=== PATIENT | male | born 1995 | race African-American/Black ===

== ENCOUNTER 2024-10-11 12:12 | Inpatient (IN) | payer OTHER, SELFPAY ==
[~2024-10-11] VITALS: Ht 188 cm; Wt 91.1 kg
[2024-10-11 13:12] LABS: BASO # 0.1 10^3/uL (0.0-0.2); BASO % 1.2 % (0.0-1.0); EOS # 0.3 10^3/uL (0.0-0.5); EOS % 5.8 % (0.0-3.0); HEMATOCRIT 43.4 % (42.0-52.0); HEMOGLOBIN 14.3 g/dl (13.5-17.5); LYMPH # 2.5 10^3/uL (1.5-5.0); LYMPH % 48.3 % (24.0-44.0); MEAN CORPUSCULAR HEMOGLOBIN 29.2 pg (27.0-33.0); MEAN CORPUSCULAR HGB CONC 32.9 g/dl (32.0-36.5); MEAN CORPUSCULAR VOLUME 88.8 fl (80.0-96.0); MONO # 0.5 10^3/uL (0.0-0.8); MONO % 10.2 % (2.0-8.0); NEUTROPHILS # 1.8 10^3/uL (1.5-8.5); NEUTROPHILS % 34.3 % (36.0-66.0); PLATELET COUNT, AUTOMATED 182 10^3/uL (150-450); RED BLOOD COUNT 4.89 10^6/uL (4.30-6.10); WHITE BLOOD COUNT 5.2 10^3/uL (4.0-10.0)
[2024-10-11 13:21] LABS: ERYTHROCYTE SEDIMENTATION RATE 22 mm/hr (0-15)
[2024-10-11 13:28] LABS: C REACTIVE PROTEIN QUANTITATIV 0.75 MG/DL (<1.0)
[2024-10-11 13:29] LABS: BLOOD UREA NITROGEN 16 MG/DL (9-23); CALCIUM LEVEL 9.3 MG/DL (8.5-10.1); CARBON DIOXIDE LEVEL 29 MMOL/L (20-31); CHLORIDE LEVEL 104 MMOL/L (98-107); CREATININE FOR GFR 1.14 MG/DL (0.70-1.30); GLOMERULAR FILTRATION RATE > 60.0 (>60); GLUCOSE, FASTING 90 MG/DL (60-100); POTASSIUM SERUM 5.1 MMOL/L (3.5-5.1); SODIUM LEVEL 141 MMOL/L (136-145)
[2024-10-11] MEDS: LIDOCAINE 1% MDV 20ML VIAL SC ONE (13:55)
[2024-10-11 14:55] LABS: CK-MB VALUE MASS 1.6 NG/ML (<3.6)
[2024-10-11 14:57] LABS: CPK CREATINE PHOSPHOKINASE 332 U/L (46-171); MB/CK RELATIVE INDEX 0.48 (< OR =4)
[2024-10-11] MEDS: AMPICILLIN SOD/SULBACTAM SOD 3 GM in DEXTROSE 5% (D5W) MINI-BAG PLU 100 ML IV ONE (15:36)
[2024-10-11] MEDS ORDERED: HOME MED LIST COMPLETE! XX SCH (15:50)
[2024-10-11] MEDS ORDERED: MOM 30ML SUSPENSION UDC PO PRN (16:35)
[2024-10-11 17:32] LABS: ALBUMIN 3.6 G/DL (3.2-5.2); ALKALINE PHOSPHATASE 60 U/L (40-129); ALT/SGPT 20 U/L (7.0-40); AST/SGOT 20 U/L (<34); BILIRUBIN,DIRECT < 0.1 MG/DL (<0.4); BILIRUBIN,TOTAL 0.2 MG/DL (0.3-1.2); TOTAL PROTEIN 6.9 G/DL (5.7-8.2)
[2024-10-11] MEDS: DOXYCYCLINE HYCLATE 100 MG in DEXTROSE 5% (D5W) MINI-BAG PLU 100 ML IV SCH (18:33)
[2024-10-11 18:57] LABS: AMPHETAMINES LEVEL URINE NEGATIVE (NEGATIVE); BARBITURATES URINE NEGATIVE (NEGATIVE); BENZODIAZEPINES URINE NEGATIVE (NEGATIVE)
[2024-10-11 18:58] LABS: COCAINE METABOLITE URINE NEGATIVE (NEGATIVE); METHADONE URINE NEGATIVE (NEGATIVE); OPIATES URINE NEGATIVE (NEGATIVE); PHENCYCLIDINE URINE NEGATIVE (NEGATIVE)
[2024-10-11 19:03] LABS: CANNABINOIDS URINE POSITIVE (NEGATIVE)
[2024-10-11] MEDS: DOCUSATE SODIUM 100MG CAPSULE PO SCH (21:00)
[2024-10-11 21:14] VITALS: BP 121/74; TEMP 97.5; O2SAT 96
[2024-10-11] MEDS: AMPICILLIN SOD/SULBACTAM SOD 3 GM in DEXTROSE 5% (D5W) MINI-BAG PLU 100 ML IV SCH (22:15)
[2024-10-12 03:52] VITALS: BP 119/66; TEMP 97.7; O2SAT 95
[2024-10-12 06:44] LABS: HEMATOCRIT 41.7 % (42.0-52.0); HEMOGLOBIN 13.9 g/dl (13.5-17.5); MEAN CORPUSCULAR HEMOGLOBIN 29.4 pg (27.0-33.0); MEAN CORPUSCULAR HGB CONC 33.3 g/dl (32.0-36.5); MEAN CORPUSCULAR VOLUME 88.2 fl (80.0-96.0); PLATELET COUNT, AUTOMATED 171 10^3/uL (150-450); RED BLOOD COUNT 4.73 10^6/uL (4.30-6.10); WHITE BLOOD COUNT 5.1 10^3/uL (4.0-10.0)
[2024-10-12 06:54] LABS: BLOOD UREA NITROGEN 14 MG/DL (9-23); CALCIUM LEVEL 8.8 MG/DL (8.5-10.1); CARBON DIOXIDE LEVEL 28 MMOL/L (20-31); CHLORIDE LEVEL 106 MMOL/L (98-107); CREATININE FOR GFR 1.09 MG/DL (0.70-1.30); GLOMERULAR FILTRATION RATE > 60.0 (>60); GLUCOSE, FASTING 103 MG/DL (60-100); POTASSIUM SERUM 4.3 MMOL/L (3.5-5.1); SODIUM LEVEL 141 MMOL/L (136-145)
[2024-10-12 08:46] LABS: PROCALCITONIN <0.04 ng/ml
[2024-10-12 12:00] VITALS: BP 120/72; TEMP 97.6; O2SAT 95
[2024-10-12] MEDS: DOXYCYCLINE HYCLATE 100MG TABLET PO SCH (20:03)
[2024-10-12 20:07] VITALS: BP 101/63; TEMP 97; O2SAT 98
[2024-10-13 04:00] VITALS: BP 114/74; TEMP 97.3; O2SAT 98
[2024-10-13] MEDS: ACETAMINOPHEN 325 MG TAB PO PRN (11:47)
[2024-10-13 12:00] VITALS: BP 126/74; TEMP 97.5; O2SAT 97
[2024-10-13] MEDS: LIDOCAINE W/EPINEPHRINE 1% 20ML VIAL SC ONE (16:31)
[2024-10-13] MEDS ORDERED: BACITRACIN OINTMENT 30GM TUBE TOP SCH (18:00)
[2024-10-13 20:01] VITALS: BP 116/69; TEMP 97.5; O2SAT 98
[2024-10-13] MEDS: BACITRACIN OINTMENT 30GM TUBE TOP SCH (20:56)
[2024-10-13] MEDS: RAMELTEON 8 MG TAB (ROZEREM) PO ONE (21:20)
[2024-10-14 04:22] VITALS: BP 106/57; TEMP 97.5; O2SAT 98
[2024-10-14 07:10] LABS: BASO % 0.5 % (0.0-1.0); EOS # 0.3 10^3/uL (0.0-0.5); EOS % 7.2 % (0.0-3.0); HEMATOCRIT 43.2 % (42.0-52.0); HEMOGLOBIN 14.4 g/dl (13.5-17.5); LYMPH # 2.1 10^3/uL (1.5-5.0); LYMPH % 53.4 % (24.0-44.0); MEAN CORPUSCULAR HGB CONC 33.3 g/dl (32.0-36.5); MEAN CORPUSCULAR VOLUME 86.9 fl (80.0-96.0); MONO # 0.4 10^3/uL (0.0-0.8); MONO % 10.5 % (2.0-8.0); NEUTROPHILS # 1.1 10^3/uL (1.5-8.5); NEUTROPHILS % 28.4 % (36.0-66.0); PLATELET COUNT, AUTOMATED 189 10^3/uL (150-450); RED BLOOD COUNT 4.97 10^6/uL (4.30-6.10)
[2024-10-14 07:34] LABS: BLOOD UREA NITROGEN 13 MG/DL (9-23); CALCIUM LEVEL 8.7 MG/DL (8.5-10.1); CARBON DIOXIDE LEVEL 26 MMOL/L (20-31); CHLORIDE LEVEL 108 MMOL/L (98-107); CREATININE FOR GFR 0.77 MG/DL (0.70-1.30); GLOMERULAR FILTRATION RATE > 60.0 (>60); GLUCOSE, FASTING 110 MG/DL (60-100); POTASSIUM SERUM 4.3 MMOL/L (3.5-5.1); SODIUM LEVEL 143 MMOL/L (136-145)
[2024-10-14 12:45] VITALS: BP 129/73; TEMP 97.5; O2SAT 98
[2024-10-14] MEDS ORDERED: AMOX875T2 PO (13:30)
[2024-10-14] MEDS ORDERED: ACET32TAB PO (13:30)
[2024-10-14] MEDS ORDERED: BACI50OI TOP (13:30)
== END 2024-10-14 14:10 | DRG 115 ==
LOC: M ED 12:12 → M ED INP 16:34 → M MS5PR 21:15
PROVIDERS: ADMIT Student in an Organized Health Care Education/Training Program; ATTEND Internal Medicine
PROC: 099 Ear, Nose, Sinus, Drainage (ICD-10-PCS; principal; 2024-10-11)
PROC: 09900ZZ Drainage of Right External Ear, Open Approach (ICD-10-PCS; 2024-10-13)
DX: H60.11 Cellulitis of right external ear (principal); R09.1 Pleurisy; K59.00 Constipation, unspecified